=== PATIENT | female | born 1975 | race Caucasian/White ===

== ENCOUNTER 2019-10-09 14:09 | Outpatient (CLI) | payer OTHER ==
--- NOTE | 2019-10-09 15:28 | RAD ---
EXAM: Chest PA and lateral: HISTORY: Asthma with acute exacerbation COMPARISON: 11/15/2007 FINDINGS: Heart: Normal cardiac silhouette Aorta: Unremarkable Pulmonary vessels: Normal Costophrenic angles: Costophrenic angles are clear. Lungs: No significant hyperinflation. However, there are increased bronchovascular markings which may represent reactive airway changes. Pneumothorax: No pneumothorax Osseous structures: No osseous abnormalities IMPRESSION: Increased bronchovascular markings which may represent reactive airway changes
== END 2019-10-09 14:10 | disposition home or self-care (01) ==
LOC: BURRAD 14:09
PROVIDERS: ATTEND Registered Nurse Community Health
DX: J45.901 Unspecified asthma with (acute) exacerbation (principal)
CPT/HCPCS: 71046